=== PATIENT | female | born 1960 | race Caucasian/White ===

== ENCOUNTER 2019-02-03 23:20 | Emergency (ER) | payer SELFPAY ==
[2019-02-03] MEDS ORDERED: HALOPERIDOL LACT 5 MG/ML INJ ONE (23:37)
[2019-02-03] MEDS ORDERED: HALOPERIDOL LACT 5 MG/ML INJ IVP ONE (23:40)
[2019-02-03 23:43] LABS: PLATELET COUNT 259 10^3/uL (150-400)
--- NOTE | 2019-02-03 23:53 | EDPHY ---
H & P Stated Complaint: ?ETOH vs OD - Medical/Surgical History Other PMH: depression Time Seen by Provider: 02/03/19 23:26 HPI/ROS: Chief Complaint: Alcohol ingestion, depression HPI: 58-year-old woman being brought in for altered mental status. Her states that she drank part of a bottle of vodka this evening. There of visiting from [place]. He reports that she had a suicide attempt with an overdose on benzodiazepines about 6 weeks ago. They are here on a trip to see local mental health counselors. Patient has been having difficulties with depression for the last 2 years ever since coming off of Prozac. She had, the Prozac because it caused her sodium to go very low. Since that time she has been taking benzodiazepines and other medications but is continuing to have depression and suicidal ideation. Tonight she was able to find keys to the car and drive to a liquor store where she bought a bottle of alcohol. Patient's says that she called out to him and told him that she had just drunk the alcohol. He says that he keeps her medications locked up since overdose and he does not believe that she has taken any of them as she did not have access. She never drinks alcohol. She is continue have problems with depression. No vomiting. She has not been able to answer any questions. She is awake and protecting her airway. ROS: 10 systems were reviewed and were negative except those elements noted in the HPI. PMH: Depression, hypothyroidism, hyponatremia Social History: No smoking, no alcohol, no recreational drug use Family History: non-contributory Physical Exam: Gen: Somnolent, occasionally flailing, maintaining airway, moderate in "help me " HEENT: Nose: no rhinorrhea Eyes: PERRLA, EOMI Mouth: Moist mucosa Neck: Supple, no JVD Chest: nontender, lungs clear to auscultation Heart: S1, S2 normal, no murmur Abd: Soft, non-tender, no guarding Back: no CVA tenderness, no midline tenderness Ext: no edema, non-tender Skin: no rash Neuro: CN II-XII intact, Sensation grossly intact, Strength 5/5 in bilateral upper and lower extremities (Johnathon Mercer) Constitutional: Initial Vital Signs Heart Rate 80 02/03/19 23:32 Respiratory Rate 16 02/03/19 23:32 Blood Pressure 131/77 H 02/03/19 23:32 O2 Sat (%) 98 02/03/19 23:32 O2 Delivery Mode Room Air O2 (L/minute) 2 Allergies/Adverse Reactions: No Known Allergies Allergy (Unverified 02/03/19 23:31) Home Medications: Medication Instructions Recorded Clonidine 02/03/19 traZODone 02/03/19 Medical Decision Making - Diagnostics Imaging Results: Imaging Impressions Head CT 02/03/19 23:26 Impression: 1. There is no acute intracranial abnormality identified on this unenhanced CT evaluation. 2. Mild right mastoid effusion. If there is further clinical concern regarding the patient's symptoms, MR imaging is suggested, if not otherwise contraindicated. Final results are concordant with the initial interpretation at 12:36 AM on 02/04. DR1 CT brain without contrast: Comparison: None Findings: No intracranial hemorrhage. No mass lesion. No midline shift or herniation. No definite evidence of acute ischemia or stroke. No hydrocephalus. There may be a small amount of fluid in the right mastoid air cells. No acute fracture. The bones, sinuses and soft tissues are otherwise unremarkable. Impression: No acute intracranial abnormality. Small amount of fluid in the right mastoid air cells is probably benign effusion. Mild mastoiditis is less likely. ELECTRONICALLY SIGNED BY: Wojciech Yu MD February 04, 2019 12:36:53 AM MDT (Johnathon Mercer) ED Course/Re-evaluation: Patient's CT scan is normal. Blood alcohol is 300. Patient was initially restless and agitated. She received 5 mg of Haldol. She is now sleeping. Plan will be to reassess when she has had an opportunity to metabolize her alcohol. Given her recent history of suicidality and the atypical behavior drinking tonight she has been placed on a medical detainer. Will need mental health evaluation in the morning. Patient is more coherent. Admitting that she did drink the alcohol as a suicidal gesture. She has been placed on a mental health hold by me. Will get a sober mental health evaluation in the morning. She is otherwise medically cleared. [address] Mcgee pending mental health evaluation. (Johnathon Mercer) 0 700: Patient is signed out to me at change of shift by Dr. Mercer. Patient is stable. Patient is awaiting psychiatric evaluation. Patient was evaluated by [facility]iatric [facility]. They recommended the patient to hold be terminated. They did not feel the patient was suicide risk. Patient denies suicidality at this time. (Anay Mcgee) - Data Points Laboratory Results: Laboratory Results 02/03/19 23:30 02/03/19 23:30 02/04/19 02/03/19 02/03/19 00:05 23:30 23:30 WBC 9.33 10^3/uL 10^3/uL (3.80-9.50) RBC 4.15 10^6/uL L 10^6/uL (4.18-5.33) Hgb 12.1 g/dL L g/dL (12.6-16.3) Hct 37.8 % L % (38.0-47.0) MCV 91.1 fL fL (81.5-99.8) MCH 29.2 pg pg (27.9-34.1) MCHC 32.0 g/dL L g/dL (32.4-36.7) RDW 13.2 % % (11.5-15.2) Plt Count 259 10^3/uL 10^3/uL (150-400) MPV 9.3 fL fL (8.7-11.7) Neut % (Auto) 36.5 % L % (39.3-74.2) Lymph % (Auto) 49.5 % H % (15.0-45.0) Sargent % (Auto) 11.8 % % (4.5-13.0) Eos % (Auto) 1.1 % % (0.6-7.6) Baso % (Auto) 0.8 % % (0.3-1.7) Nucleat RBC Rel Count 0.0 % % (0.0-0.2) Absolute Neuts (auto) 3.41 10^3/uL 10^3/uL (1.70-6.50) Absolute Lymphs (auto) 4.62 10^3/uL H 10^3/uL (1.00-3.00) Absolute Monos (auto) 1.10 10^3/uL H 10^3/uL (0.30-0.80) Absolute Eos (auto) 0.10 10^3/uL 10^3/uL (0.03-0.40) Absolute Basos (auto) 0.07 10^3/uL 10^3/uL (0.02-0.10) Absolute Nucleated RBC 0.00 10^3/uL 10^3/uL (0-0.01) Immature Gran % 0.3 % % (0.0-1.1) Immature Gran # 0.03 10^3/uL 10^3/uL (0.00-0.10) Sodium 137 mEq/L mEq/L (135-145) Potassium 3.5 mEq/L mEq/L (3.5-5.2) Chloride 102 mEq/L mEq/L (97-110) Carbon Dioxide 21 mEq/l L mEq/l (22-31) Anion Gap 14 mEq/L mEq/L (6-14) BUN 11 mg/dL mg/dL (7-23) Creatinine 0.7 mg/dL mg/dL (0.6-1.0) Estimated GFR > 60 Glucose 136 mg/dL H mg/dL (70-100) Calcium 8.9 mg/dL mg/dL (8.5-10.4) Urine Opiates Screen NEGATIVE (NEGATIVE) Acetaminophen < 10 mcg/mL L mcg/mL (10-30) Urine Barbiturates NEGATIVE (NEGATIVE) Ur Phencyclidine Scrn NEGATIVE (NEGATIVE) Ur Amphetamine Screen NEGATIVE (NEGATIVE) U Benzodiazepines Scrn NEGATIVE (NEGATIVE) Urine Cocaine Screen NEGATIVE (NEGATIVE) U Marijuana (THC) Screen NEGATIVE (NEGATIVE) Ethyl Alcohol 295 mg/dL H mg/dL (0-10) Medications Given: Discontinued Medications Haloperidol Lactate (Haldol Injection) 5 mg IVP EDNOW ONE Stop: 02/03/19 23:41 Last Admin: 02/03/19 23:41 Dose: 5 mg Departure - Departure Disposition: Home, Routine, Self-Care Clinical Impression: Alcohol abuse Condition: Fair Instructions: Alcohol Intoxication (ED) Additional Instructions: Return with feelings of despair or wanting to hurt yourself. Referrals: JOANA ELIZALDE [Other] - 2-3 days, if not improved
[2019-02-04 09:48] VITALS: BP 118/78
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
--- NOTE | 2019-02-04 10:28 | ASMTTCLDSP ---
TLC Discharge Disposition Disposition: Answers: Discharge If Answers: Yes DISCHARGED: Patient/family given suicide hotline info & [facility] brochure? Disposition Notes: Notes: Pt stated commitment or ability to keep self safe, denied thoughts of self harm or harm to others. Pt expressed a desire to f/u with mental health services back in [place], [place] next week. Pt was given local hotline information and [facility] brochure After an Attempt. Discharge Concerns/Recommendations: Notes: In consultation with [facility] ED physician, Anay Mcgee MD, Dr. Mcgee concurred that pt does not appear to meet 27-65 criteria requiring psychiatric hospitalization as pt does not appear to be an imminent risk of harm to self/others/gravely disabled due to a mental illness condition. Dr. Mcgee entered order vacating M1 hold at 0940 hrs. Was patient given the Answers: Not applicable Inpatient Behavioral Health Prohibited Belongings List while in the ED? Psychiatrist vacating M1 Anay Mcgee MD Hold: Date and time M1 hold 02/04/2019 09:40 AM vacated (time format is hh:mm): Type of Hold: Answers: M1/72-hour Hold Hold initiated by: Answers: ED Physician Date Signed: 02/04/2019 10:27 AM Electronically Signed By:Georges Oates
== END 2019-02-04 09:57 | disposition home or self-care (01) ==
DX: F10.920 Alcohol use, unspecified with intoxication, uncomplicated (principal); F32.9 Major depressive disorder, single episode, unspecified
CPT/HCPCS: 80305; 96374; G0480; J1630